=== PATIENT | male | born 1985 | race Caucasian/White ===

== ENCOUNTER 2022-02-02 23:42 | Emergency (ER) | payer BC, SELFPAY ==
--- NOTE | ~2022-02-02 | CT_ITS ---
EXAMINATION: CT abdomen pelvis w con DATE: 02/03/2022 02:17 INDICATION: Right upper quadrant and mid abdominal pain radiating to back. Nausea. TECHNIQUE: Computed tomography (CT) of the abdomen and pelvis was performed with 100 CC Omnipaque 350 intravenous contrast. Automated exposure control and iterative reconstruction technique were employe d. Exam dose: 398.65 mGy-cm total exam DLP. COMPARISON: None. FINDINGS: Lung bases are clear of infiltrate or consolidation. Heart size is normal. No pericardial o r pleural effusion. There is hepatic steatosis. No hepatic space-occupying mass lesion. The gallbladder appears unremarka ble. No bile duct or pancreatic duct dilatation. No pancreatic mass lesion, calcification or ductal d ilatation. Normal splenic size. Several splenules are noted. Normal morphology of the adrenal glands. No renal mass lesion. There is mild right hydronephrosis secondary to approximately 5 x 7 mm calculus at the proximal right ureter. Pinpoint nonobstructing right renal calculus. Several small nonobstructing left renal calcul i, measuring up to 2.5 mm. The urinary bladder and prostate gland are unremarkable.. Multiple diverticula of the sigmoid and descending colon; no CT evidence of diverticulitis. Normal ap pendix. No bowel obstruction or intraperitoneal free air. Small fat-containing umbilical hernia. Bilateral L5 pars interarticularis defects with grade 1 anterolisthesis at L5-S1. Included skeletal s tructures are otherwise unremarkable. IMPRESSION: Approximately 5 x 7 mm proximal right ureteral calculus with mild proximal right hydrour eteronephrosis likely mild bilateral nonobstructive nephrolithiasis Diverticulosis of left colon; no evidence of diverticulitis Bilateral L5 pars intra-articular is defects with grade 1 anterolisthesis at L5-S1 Reviewed, dictated and finalized at [facility]. Reviewed, dictated and finalized at [facility]. IMPRESSION: Approximately 5 x 7 mm proximal right ureteral calculus with mild proximal right hydroureteronephrosis likely mild bilateral nonobstructive nephr olithiasis Diverticulosis of left colon; no evidence of diverticulitis Bilateral L5 pars intra-articular is defects with grade 1 anterolisthesis at L5 -S1
[2022-02-02 23:51] VITALS: BP 155/79; PULSE 69; RESP 18; TEMP 36.6; O2SAT 100
[2022-02-03] VITALS (19 sets, daily range): BP systolic 113–127; BP diastolic 64–96; PULSE 60–104; RESP 14–20; O2SAT 88–99
[2022-02-03] MEDS: ONDANSETRON INJ 4 MG/2 ML VIAL IV PUSH (00:37)
[2022-02-03] MEDS: MORPHINE SULFATE (*CRX) 4 MG/ML INJ IV PUSH (00:37)
--- NOTE | 2022-02-03 00:40 | ED.ABDPAIN ---
HPI - Abdominal Pain General Chief Complaint: Abdominal Pain Stated Complaint: rt sided abd pain , nausea Time Seen by Provider: 02/03/22 00:01 History of Present Illness HPI narrative: Patient is a 36-year-old male here for evaluation of right lower quadrant abdominal pain and right back pain. Patient states that the pain came on about 4 hours prior to arrival to the emergency department. States that the pain is sharp and stabbing in nature and is severe. Pain is making it difficult to find a comfortable position. States that the pain initially eased up without intervention, but did return about 45 minutes prior to arrival, and is now associated with nausea. He has not taken any pain medication. No vomiting, dysuria, hematuria, urgency, frequency, fevers, chest pain, shortness of breath. Denies history of connective tissue disease or kidney stones. Related Data Allergies Allergy/AdvReac Type Severity Reaction Status Date / Time No Known Allergies Allergy Verified 02/03/22 00:45 Review of Systems Review of Systems: Gen: Denies fevers or chills Eyes: Denies eye pain or visual change ENT: Denies congestion Respiratory: Denies shortness of breath or cough CV: Denies chest pain or palpitations GI: Reports abdominal pain and nausea denies burning, urgency, frequency or hematuria Musculoskeletal: Reports back pain. Neuro: Denies numbness, tingling, weakness or focal weakness Skin: Denies rash Except as documented, all other systems reviewed and negative [facility] Past Medical History Medical History (Updated 02/03/22 @ 06:15 by Boyd Lopez MD) HLD (hyperlipidemia) Surgical History Surgical History History of vasectomy Social History Social History Smoking status: Never smoker Alcohol intake: current Drinks per week: 3 Substance use: never Substance use type: does not use Gender identity (if verbalized by the patient): Male Exam Narrative: APPEARANCE: Uncomfortable appearing Head: Normocephalic and atraumatic. EYES: PERRLA/EOMI, conjunctivae clear NOSE: No nasal drainage EARS: External ear normal in appearance THROAT: Oropharynx is clear. Mucous membranes are moist. NECK: Supple. No adenopathy, no masses. RESPIRATORY: Airway patent, respirations nonlabored. Clear to auscultation bilaterally, no rales, rhonchi, wheezing. CARDIOVASCULAR: Regular rate and rhythm without murmurs, rubs, or gallops. ABDOMINAL: Mild tenderness in right lower quadrant, no rebound tenderness or guarding. No CVA tenderness. Normoactive bowel sounds. Soft, nondistended. MUSCULOSKELETAL: No midline tenderness along C, T, or L-spine. Extremities are warm and well-perfused. Moves all extremities well. No edema. NEURO: Normal speech. No focal neurologic deficits. SKIN: Skin is warm and dry. No rashes. PSYCHIATRIC: Normal affect/mood. Course Vital Signs Vital signs: Vital Signs Temperature 36.6 C 02/02/22 23:51 Pulse Rate 69 02/02/22 23:51 Respiratory Rate 18 02/02/22 23:51 Blood Pressure 155/79 H 02/02/22 23:51 Pulse Oximetry 100 02/02/22 23:51 Oxygen Delivery Room Air 02/02/22 23:51 Temperature 36.6 C 02/02/22 23:51 Pulse Rate 104 H 02/03/22 04:31 Respiratory Rate 20 02/03/22 04:31 Blood Pressure 115/75 02/03/22 04:31 Pulse Oximetry 96 02/03/22 04:56 Oxygen Delivery Nasal Cannula 02/03/22 02:56 Oxygen Flow Rate 2 02/03/22 02:56 MDM - Abdominal Pain MDM Narrative Medical decision making narrative: 36-year-old male here for evaluation of right lower quadrant and right low back pain with nausea He is uncomfortable appearing on exam, tender in the right lower quadrant. Considered kidney stone, appendicitis, pyelonephritis, doubt aortic dissection given lack of ripping/tearing quality, no chest pain, no hx HTN, aortic disorder or connective tissue disor
[2022-02-03 00:49] LABS: Basophils Absolute Auto 0.1 K/mm3 (0.0-0.1); Basophils Percent Auto 0.9 % (0.2-1.2); Eosinophils Absolute Auto 0.2 K/mm3 (0-0.3); Hematocrit 42.1 % (42.0-52.0); Hemoglobin 14.4 g/dL (14.0-18.0); Immature Granulocyte Absolute 0.03 K/mm3 (0.00-0.031); Immature Granulocyte Percent A 0.3 % (0-0.5); Lymphocytes Absolute Auto 2.96 K/mm3 (0.9-3.2); Lymphocytes Percent Auto 32.8 % (18.3-44.2); Mean Corpuscular HGB Conc 34.2 g/dl (32-36); Mean Corpuscular Hemoglobin 28.7 pg (26-34); Mean Platelet Volume 11.7 fl (7.4-10.4); Monocytes Absolute Auto 0.8 K/mm3 (0.1-0.6); Monocytes Percent Auto 9.2 % (2.6-8.5); Neutrophils Absolute Auto 4.9 K/mm3 (1.3-6.7); Neutrophils Percent Auto 54.8 % (45.5-73.1); Platelet Count Result 201 k/mm3 (150-375); Red Blood Count 5.01 M/mm3 (4.6-6.20); Red Cell Distribution Width 13.5 % (11.5-14.5)
[2022-02-03 00:58] LABS: Alanine Aminotransferase 37 U/L (6-50); Albumin Level 4.6 g/dL (3.5-5.1); Alkaline Phosphatase 55 U/L (38-126); Anion Gap 7 mmol/L (8-16); Aspartate Amino Transferase 27 U/L (17-59); Bilirubin,Total 0.5 mg/dL (0.2-1.3); Blood Urea Nitrogen 20 mg/dL (9-20); Calcium 9.3 mg/dL (8.4-10.2); Carbon Dioxide 26 mmol/L (22-30); Chloride 108 mmol/L (98-107); Estimated CRCL calculation 61 ml/min; Estimated Glomerular Filt Rate > 60; Glucose 115 mg/dL (65-110); Lipase 63 U/L (23-300); Potassium 3.7 mmol/L (3.4-5.0); Sodium 141 mmol/L (137-145)
[2022-02-03] MEDS: HYDROmorphone HCL INJ (*CRX) 1 MG/ML SYR 0.5 MG IV PUSH (01:07)
[2022-02-03] MEDS: diphenhydrAMINE HCl INJ 50 MG/ML VIAL 12.5 MG IV PUSH (02:19)
[2022-02-03] MEDS: METOCLOPRAMIDE HCL INJ 10 MG/2 ML VIAL IV PUSH (02:20)
[2022-02-03 03:08] LABS: Appearance Urine Clear (Clear); Bilirubin Urine Negative (Negative); Blood Urine 2+ (Negative); Color Urine Yellow (Yellow); Glucose Urine UA Negative (Negative); Ketones Urine Negative (Negative); Leukocyte Esterase Ur Negative LEU/UL (Negative); Nitrate Urine Negative (Negative); Protein Urine Negative (Negative); Urobilinogen Urine 0.2 mg/dL (<2.0); pH Urine 5.5 (5.0-9.0)
[2022-02-03 03:25] LABS: Mucus Urine Few /lpf; RBC Urine 21-50 /hpf (0-2); WBC Urine 0-3 /hpf
[2022-02-03 03:26] LABS: Add Urine Microscopic? YES
== END 2022-02-03 06:26 | disposition home or self-care (01) ==
PROVIDERS: Physician Assistant; Emergency Provider Emergency Medicine; PCP Family Medicine
DX: E78.5 Hyperlipidemia, unspecified (principal)
CPT/HCPCS: 36415; 74177; 80053; 81001; 83690; 85025; 96374; 96375; 99284; J1170; J1200; J2270; J2405; J2765; Q9967

== ENCOUNTER → 2022-02-04 11:16 | Outpatient (CLI) | payer BC, SELFPAY ==
--- NOTE | ~2022-02-04 | XR_ITS ---
EXAM: XR abdomen/kub 1V DATE: 02/04/2022 11:30 HISTORY: Left ureteral stone . COMPARISON: CT abdomen pelvis 02/03/2022. FINDINGS: Clear lung bases. Normal bowel gas pattern. No organomegaly. 5 mm right proximal ureteral stone, unchanged. Multiple bilateral punctate renal calculi. Regional bones and soft tissues normal f or age. IMPRESSION: Stable 5 mm right proximal ureteral stone. Reviewed, dictated and finalized at [facility].
== END ==
PROVIDERS: PCP Family Medicine; Visit Provider Nurse Practitioner Adult Health
DX: N20.1 Calculus of ureter (principal)
CPT/HCPCS: 74018

== ENCOUNTER → 2022-02-19 13:01 | Outpatient (CLI) | payer BC, SELFPAY ==
--- NOTE | ~2022-02-19 | XR_ITS ---
EXAM: XR abdomen/kub 1V DATE: 02/19/2022 13:18 HISTORY: Right ureteral stone . COMPARISON: 02/04/2022. FINDINGS: Clear lung bases. Normal bowel gas pattern. No organomegaly. The right ureteral stone is n ot visualized today's examination. Punctate bilateral renal calculi. Regional bones and soft tissues normal for age. IMPRESSION: The right ureteral calculus described previously is no longer visualized and may have pas sed or is currently obscured. Reviewed, dictated and finalized at [facility]. IMPRESSION: The right ureteral calculus described previously is no longer visua lized and may have passed or is currently obscured.
== END ==
PROVIDERS: PCP Family Medicine; Visit Provider Nurse Practitioner Adult Health
DX: N20.1 Calculus of ureter (principal)
CPT/HCPCS: 74018